=== PATIENT | male | born 1990 | race Caucasian/White ===

== ENCOUNTER 2022-01-06 09:09 | Outpatient (CLI) | payer OTHER, SELFPAY ==
--- NOTE | 2022-01-06 09:00 | DI.RAD_ITS ---
Exam(s) XR SHOULDER RT COMPLETE 2+V EXAM: XR SHOULDER RT COMPLETE 2+V CLINICAL HISTORY: right shoulder pain. TECHNIQUE: 2D digital imaging was performed. COMPARISON: No exams were available for comparison FINDINGS: Two views: There is no evidence of fracture or dislocation no abnormal soft tissue calcifications. No obvious d egenerative changes. Coracoid process unremarkable. No os acromiale. Bone density is normal. No o sseous. Ipsilateral clavicle unremarkable. IMPRESSION: DATA REPOSITORY: RADIATION DOSE DELIVERED:
== END 2022-01-06 09:10 | disposition home or self-care (01) ==
LOC: DIORS 09:09
PROVIDERS: Visit Provider Student in an Organized Health Care Education/Training Program
DX: M25.511 Pain in right shoulder (principal)
CPT/HCPCS: 73030

== ENCOUNTER 2022-06-19 06:17 | Day surgery (SDC) | payer OTHER, SELFPAY ==
[2022-06-19] VITALS (14 sets, daily range): BP systolic 105–145; BP diastolic 55–90; PULSE 52–85; RESP 8–16; TEMP 36.1–36.7; O2SAT 95–100; BMI 24.1
--- NOTE | 2022-06-19 07:00 | ROE_ITS ---
Date of service: 06/19/22 Time of Service: 10:04 Operative Note Operative Note DATE OF PROCEDURE: 06/19/22 PRE-OP DIAGNOSIS: Right: 1. Labral tear with recurrent instability 2. SLAP tear 3. Bursitis 4. Partial articular rotator cuff tear POST-OP DIAGNOSIS: same PROCEDURE: Right: 1. Arthroscopic labral repair stabilization, CPT #17831: This involved suture anchor repair of anterior and anterior inferior ligament, labrum labrum, and capsule complex. 2. Arthroscopic biceps tenodesis, CPT# 54767. This involved arthroscopically suturing and reattaching the long head of the biceps tendon to the proximal humerus at the superior margin of the bicipital groove with a screw at the correct tension. 3. Extensive debridement, CPT# 74896. This involved using arthroscopic hand instruments, power instruments, and radiofrequency instruments to release the long head of the biceps tendon and debride areas of labral tearing, synovitis, partial articular rotator cuff tear, and chondromalacia about the glenoid working within the glenohumeral joint anteriorly, superiorly and posteriorly. 4. Subacromial decompression with partial acromioplasty, CPT# 13466. This involved using arthroscopic power instruments and a radiofrequency wand to complete a bursectomy and remove bone spurs on the undersurface of the acromion. The infertility medical assistant was medically required in order to help assist in techniques above, which require positioning the arm, holding the arthroscope, and manipulating multiple instruments and sutures at the same time. This cannot be done without the help of an experienced infertility medical assistant. SURGEON: Karan Zavala INSPECTION AND TESTING SUPERVISOR: Ale Reyes ANESTHESIA TYPE: General LMA/ETT and Primary Nerve Block Refer to Anesthesia Record ESTIMATED BLOOD LOSS: 10 PATHOLOGY: none sent COMPLICATIONS: None Patient was transported to: PACU Patient's condition: stable Implants: Arthrex: 4.75mm SwiveLocks x 1 and 2.9 mm push lock x3 Indications: The patient was diagnosed with the above conditions and appropriately indicated for surgical intervention. Please see complete medical record for details. Findings: Exam under anesthesia: Moderate anterior instability without dislocation. Significant inferior translation and positive sulcus sign in neutral and 30 degrees external rotation. Glenohumeral joint: Significant anterior superior and posterior synovitis. Chronic?appearing anterior anterior inferior labral, capsular, and AIG HL injury with reduced and absent normal labral tissue. Labral tear extended superiorly with an unstable biceps anchor. Moderate biceps tendon and synovitis. Tear continued posteriorly and ended posterior superiorly with only mildly unstable posterior superior labrum. The free labral edge had significant fraying. There was diffuse mild fraying of the articular rotator cuff. Intact subscapularis. Intact articular footprint supraspinatus and infraspinatus. Relatively small and shallow non-? engaging Hill-Sachs lesion. Subacromial space: Significant bursitis. No bursal rotator cuff tear. Minimal undersurface acromial bone spur. Procedure Description: In the operating room, general anesthesia was induced. Bilateral shoulders were examined. The patient was positioned in the beachchair position. All bony prominences were well-padded. Preoperative antibiotics were administered. The shoulder was prepped and draped in the usual sterile fashion. The correct patient, procedure, and side of the procedure were all verified prior to incision. Starting through the posterior portal a standard complete diagnostic arthroscopy was performed of the glenohumeral joint including inspection of the long head of the biceps, anterior and superior labrum, subscapularis tendon, supraspinatus and infraspinatus tendons, and axillary recess. The glenoid and humeral head cartilage as well as the posterior labrum were inspected from an anterior viewing portal. Significant findings and interventions noted above. An all-arthroscopic suprapectoral biceps tenodesis was performed through an anterior portal using a Loop N Tack method with a SutureTape FiberLink cinched around and through the tendon. The biceps was tenotomized from the labrum and fixated with a suture anchor at the superior margin of the bicipital groove. The knotless repair suture from the SwiveLock was used to pass and secure additional fixation over the biceps tenodesis. A second anterior inferior portal was established through the subscapularis atraumatically with dilators and rigid cannula inserted here as well. Care was taken to properly prepare the anterior and anterior-inferior glenoid margin for optimal bone tissue healing. Various liberators and elevators were used to maximally elevate and preserve capsular ligamentous and remnant labral tissue. Starting lowest on the glenoid face, the 45 degree left lasso was used to pass a suture tape FiberLink around AIG HL, capsular, and labral remnant tissue. A suture tape FiberLink was shuttled and then retrieved out the anterior inferior cannula and a luggage tag configuration. The eccentric drill guide was used to ensure placement of suture back onto the face of the glenoid. The drill was used through the drill guide slightly more superior than the secured tissue to reduce inferior tissue redundancy with a slight shift. The repair suture was loaded on the push lock, which was successfully deployed with good tissue and bone fixation strength. This process was repeated for an additional low anterior anchor as well as the mid anterior anchor as well completing the stabilization repair. The shoulder demonstrated appropriate increased instability and decreased lateral and inferior translation after repair. The unstable biceps anchor was inspected and was appropriately debrided and now stable after the anterior labral repair. There is no need for additional SLAP repair. Hill-Sachs lesion remained non-engaging and there was no need for remplissage. Starting through the posterior portal, the arthroscope was directed into the subacromial space. A lateral 50 yard line lateral portal was created. A combination of power instruments and a radiofrequency ablator were used to enma ride bursitis anteriorly, posteriorly, and laterally as well as expose and smooth bone spurring on the undersurface of the acromion. The coracoacromial ligament was partially released. The bursectomy was completed viewing laterally and working from posteriorly and the rotator cuff was thoroughly inspected with findings noted above. The shoulder was drained of arthroscopic fluid. All portal sites were copiously irrigated. These incisions were closed using 3-0 Monocryl in a buried fashion and then covered with Mastisol, Steri-Strips, Xeroform, dry gauze, and ABDs. The dressings were covered and secured with Medipore tape. The operative extremity was placed into a sling for immobilization. The patient awoke from anesthesia without complication and was transferred to the recovery room in a stable condition.
--- NOTE | 2022-06-19 07:00 | ANES.PREOP_ITS ---
General Info Date of Service Date Performed: 06/19/22 Height: 5 ft 7 in Weight: 69.85 kg Body Mass Index (BMI): 24.1 Surgical Procedure: Operation Date: 06/19/22 07:40 Proposed Procedure Side Surgeon p Shoulder Arthroscopy w/Extensive Debridement,Labral Repair,Biceps Tenodesis,Subacromial Decompression & Possible Remplissage Right Karan Zavala MD Meds Allergies and Home Medications Allergies Allergy/AdvReac Type Severity Reaction Status Date / Time shellfish derived Allergy Severe Verified 06/19/22 06:43 venom-honey bee Allergy Unknown Verified 06/19/22 06:43 mirtazapine AdvReac Intermediate Nausea Verified 06/19/22 06:43 Home Medication Medication Instructions Recorded albuterol 90 mcg/actuation aerosol 90 mcg inhalation BID 12/09/21 inhaler calcium carbonate 500 mg calcium 1,000 mg PO BID 12/09/21 (1,250 mg) chewable tablet clonidine HCl 0.1 mg tablet 0.1 mg PO TID 12/09/21 fluticasone propionate 50 1 spray intranasal BID 12/09/21 mcg/actuation nasal spray,suspension (Allergy Relief (fluticasone)) omeprazole 40 mg capsule,delayed 40 mg PO DAILY 12/09/21 release buprenorphine HCl 8 mg sublingual 16 mg sublingual DAILY 05/05/22 tablet bupropion HCl 150 mg tablet,12 hr 150 mg PO BID 06/18/22 sustained-release (Wellbutrin SR) aspirin 81 mg tablet,delayed 81 mg PO DAILY Prevent blood clot 06/19/22 release 14 days #14 tabs naproxen 250 mg tablet 250 - 500 mg PO BID PRN #40 tabs 06/19/22 oxycodone 5 mg tablet 5 - 10 mg PO Q4H PRN moderate to 06/19/22 severe pain #18 tabs Current Visit Medications: Current Medications Generic Name Dose Route Start Last Admin Trade Name Freq PRN Reason Stop Dose Admin Ringer's Solution 1,000 mls @ 30 mls/hr 06/19/22 06:00 IV 06/19/22 16:00 INFUSION LAYO Cefazolin Sodium/Dextrose 2 gm in 50 mls @ 100 mls/hr 06/19/22 06:00 Ancef Duplex IVPB 06/19/22 23:59 PREOP LAYO IV Miscellaneous Supplies 1 each 06/19/22 06:00 Iv Access IV 06/19/22 23:59 DIRECTED LAYO Sodium Chloride 0 ml 06/19/22 06:00 Normal Saline Flush 10 Ml Syr IV 06/19/22 23:59 PRN PRN Sodium Chloride 0 ml 06/19/22 06:00 Normal Saline 10 Ml Vial IJ 06/19/22 23:59 DIRECTED PRN Sterile Water 0 ml 06/19/22 06:00 Water,Injection,Sterile 10 Ml Vial IJ 06/19/22 23:59 DIRECTED PRN PFSH Active Problems Active Problems: Problem Status Onset Code 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 SLAP lesion of right shoulder S43.431A Bursitis of right shoulder M75.51 Medical History Medical History (Updated 06/19/22 @ 07:09 by Yumiko Choudhury) GERD (gastroesophageal reflux disease) Keratosis pilaris Medical History Comments:: [place] [employer] inmate Surgical History Surgical History (Updated 06/19/22 @ 06:46 by Yumiko Choudhury) Hx of tonsillectomy Hx of wisdom tooth extraction Tobacco Smoking/Tobacco Use Status: Former Tobacco Use Alcohol Alcohol Intake: former Substance Use Substance use: Current Sobriety Substance use type: former substance user Details: 3+years Vital Signs and Lab Results Vital Signs Most Recent Vital Signs in EMR: Most Recent Vital Signs Temp Pulse Resp BP Pulse Ox 36.7 C 72 15 126/90 97 06/19/22 06:49 06/19/22 06:49 06/19/22 06:49 06/19/22 06:49 06/19/22 06:49 Lab Results Blood Type / Crossmatch: No Data to Display Complete Blood Count: No Data to Display Complete Metabolic Panel: No Data to Display Liver Function Panel: No Data to Display Coagulation Panel: No Data to Display Cardiac Panel: No Data to Display Arterial Blood Gas: No Data to Display Venous Blood Gas: No Data to Display Pancreas Panel: No Data to Display Thyroid Panel: No Data to Display Infectious Disease: No Data to Display Blood Cultures: 2 No Data to Display Toxicology Panel: No Data to Display Anesthesia Assessment and Plan Anesthesia History Personal History: No History of Anesthesia Complications Family History: No Family History of Anesthesia Complications Exercise Tolerance Exercise Tolerance: Metabolic Equivalents>4 Pertinent Negatives Pertinent Negatives: No Symptoms of GERD, No Major Cardiovascular Symptoms or Complaints and No Major Pulmonary Symptoms or Complaints Cardiac & Pulmonary Exam Cardiac Exam: Normal S1/S2 Heart Sounds Pulmonary Exam: Clear Bilateral Breath Sounds Implantable Cardiac Device Does patient have a Pacemaker or an ICD?: No Airway Exam Known Difficult Airway: No Mallampati Class: 2 Mouth Opening: Normal (> 3cm) Thyromental Distance: Greater than 3 cm Facial Hair: Full Santos Neck Range of Motion: Full ROM Neck Circumference: Normal Teeth Condition: Normal Dentition ASA Classification ASA Score: ASA 2 Emergency Case?: No NPO Status NPO Status: NPO Clears >2 hours, Solids >8 hours Anesthesia Plan Resuscitation Status: Full Code Anesthesia Technique: General Anesthesia Airway Planned: Endotracheal Tube Pain Management: Surgeon and patient request nerve block Monitors Used: Standard Monitors
--- NOTE | 2022-06-19 07:01 | PDOC.DSDIS_ITS ---
Date of service: 06/19/22 Time of Service: 09:53 Discharge Plan Disposition Patient Disposition: HOME Condition: Stable Discharge Details Reason For Visit: Right shoulder surgery Attending Provider: Karan Zavala Primary Care Provider: Unknown,Unknown Home Meds and New Rx's Prescriptions: New naproxen 250 mg tablet 250 - 500 mg PO BID PRNQty: 40 0RF Rx Instructions: take with a meal aspirin 81 mg tablet,delayed release (DR/EC) 81 mg PO DAILY 14 Days Qty: 14 0RF oxycodone 5 mg tablet 5 - 10 mg PO Q4H MDD 30 mg PRN (Reason: moderate to severe pain) Qty: 18 0RF Continued buprenorphine HCl 8 mg tablet, sublingual 16 mg sublingual DAILY clonidine HCl 0.1 mg tablet 0.1 mg PO TID omeprazole 40 mg capsule,delayed release(DR/EC) 40 mg PO DAILY albuterol 90 mcg/actuation aerosol 90 mcg inhalation BID fluticasone propionate [Allergy Relief (fluticasone)] 50 mcg/actuation spr ay,suspension 1 spray intranasal BID Rx Instructions: administer into each nostril calcium carbonate 500 mg calcium (1,250 mg) tablet,chewable 1,000 mg PO BID bupropion HCl [Wellbutrin SR] 150 mg Tablet Sustained-Release 12 Hr 150 mg PO BID Discharge Instructions Additional Instructions: Surgery: Right shoulder arthroscopy with labral repair stabilization, biceps tenodesis, extensive debridement, and subacromial decompression. Activity: For 6 weeks, you should keep your arm at your side in a neutral position at all times except for physical therapy. Do not try to lift or raise your arm using your own muscles. You should use the sling whenever you are out of the house. You may have to adjust the abduction pillow or remove it for comfort. At home it is best to remove the sling and rest the arm on a pillow at your side or support the operative side with your other hand. You may allow the arm to dangle at your side. A physical therapy prescription will be provided separately in the office at follow-up. Protect biceps tenodesis: Avoid any weighted elbow flexion or resisted supination for 6 weeks. Concentric biceps strengthening after 8 weeks. Eccentric after 12 weeks. Range of motion protocol: 0-6 weeks: 0 degrees external rotation and 90 degrees forward elevation 6-8 weeks: 30 degrees external rotation and 120 degrees forward elevation 8+ weeks: Advance to full Prescriptions: Aspirin 81 mg take 1 daily to prevent a blood clot for 2 weeks Naproxen 250 mg take 1-2 every 12 hours with a meal as needed for moderate pain Oxycodone 5 mg take 1-2 every 4-6 hours as needed for severe pain You may use [id number] Tylenol (acetaminophen) as needed for mild pain. These pain medications may be taken all at once or in different combinations as needed. Also, recommend Colace (docusate) as a stool softener as surgery and pain medicine cause constipation. You may try [id number] diphenhydramine (Benadryl) 25-50 mg nightly as a sleep aid Dressings: Remove shoulder bandage after 3 days. Leave the sticky Steri-Strips in place until they fall off or remove them after you shower. Cover the incisions with Band-Aids or leave them open to air. You may shower after 5 days. Follow-up: 10-[address] Zavala You may take off the leg compression stockings this evening at home. You may also leave them on a few days longer if you have a history of leg swelling or edema. Let us know right away if you develop any redness, drainage, fevers, chest pain, or trouble breathing. Do not drink alcohol or drive for at least 24 hours after anesthesia. Please call the office during business hours with any questions or concerns. DS: Diagnosis Discharge Diagnosis (1) Instability of right shoulder joint: Status: Acute (2) SLAP lesion of right shoulder: Status: Acute (3) Bursitis of right shoulder: Status: Acute
[2022-06-19] MEDS: Lactated Ringers 1,000 ML 30 ML IV (07:15)
[2022-06-19] MEDS: ceFAZolin 2 GM/50 ML BAG IVPB (07:40)
[2022-06-19] MEDS: Bupivacaine 0.5% Pres-Free W/EPI 30 ML VIAL (09:39)
[2022-06-19] MEDS: EPINEPHrine 30 MG/30 ML VIAL (09:39)
[2022-06-19] MEDS: fentaNYL 100 MCG/2 ML VIAL IVP ×2 (10:59→11:05)
[2022-06-19] MEDS: Normal Saline 10 ML VIAL IJ (11:15)
[2022-06-19] MEDS: HYDROmorphone 2 MG/ML SYR IVP ×2 (11:16→11:28)
--- NOTE | 2022-06-19 11:19 | W.ANESNERVE ---
Nerve Block Single Injection Procedure Date and Time Date Performed: 06/19/22 Procedure Start: 07:23 Location Where Procedure Performed Procedure Location: Day Surgery Unit Reason Performed: Postoperative Analgesia Requesting Provider: Karan Zavala Timeout Performed Timeout Performed: Yes Monitoring Used ECG, Blood Pressure, SpO2 and See EMR for corresponding vital signs Sterility Sterility: Hand Hygiene, Surgical Cap, Surgical Mask, Sterile Gloves, Eye Protection and Chlorhexidine Sedation Given During Procedure Sedation Given (Indicate Dose Given): Versed IV Dose:: 2mg Patient Mental Status Patient Mental Status: Awake Nerve Block 1st Nerve Block: Laterality: Right Block Type: Interscalene Needle / Catheter Used: 80mm SonoPlex II Local Anesthetic Bolus (Indicate Dose Given): Lidocaine used for local infiltration of skin, Injected in 3-5ml increments after negative blood aspiration, Bupivacaine 0.5% Dose:: 10mL and Exparel Dose:: 10mL Additives (Indicate Dose Given): None Ultrasound: Sterile probe cover and gel used Ultrasound Image Saved?: Yes Nerve Stimulator: Supplement to Ultrasound use and No twitch or parasthesia noted < 0.5 mA Paresthesia: None Procedure Tolerated: No Complications Procedure Outcome: Successful Performed By: Pamela Lam
[2022-06-19] MEDS: Ondansetron 4 MG/2 ML VIAL IVP ×2 (11:23)
--- NOTE | 2022-06-19 12:19 | W.ANESPOSTOP ---
Postoperative Evaluation Date, Time and Location Date Performed: 06/19/22 Time Performed: 10:50 Patient Location: PACU Vital Signs Most Recent Imported Vital Signs: Most Recent Vital Signs Temp Pulse Resp BP Pulse Ox 36.2 C L 69 11 L 145/75 H 100 06/19/22 11:35 06/19/22 11:35 06/19/22 11:35 06/19/22 11:35 06/19/22 11:35 Pain Score Most Recent Pain Score: Most Recent Pain Score Pain Level 7 06/19/22 11:35 Assessment Mental Status: Arousable with meaningful communication Airway and Respiratory Function: Patent airway with normal (patient baseline) respiratory exam Cardiovascular Function: Hemodynamically Stable Hydration Status: Adequately Hydrated Nausea & Vomiting: No Nausea or Vomiting Pain: Pain is Moderate or Severe Postoperative Pain Management: Pain being addressed with medication Peripheral Nerve Block: Regional nerve block not resolved at time of post operative discharge Postoperative Comments:: Patient evaluated, reports lateral shoulder discomfort. Discussed with Dr. Zavala. Plan for PO medication on discharge.
[2022-06-19] MEDS: oxyCODONE 5 MG TAB PO (12:40)
== END 2022-06-19 13:26 | disposition home or self-care (01) ==
PROVIDERS: Visit Provider Student in an Organized Health Care Education/Training Program
PROC: (CPT 29805; principal; 2022-06-19 07:30)
DX: M25.311 Other instability, right shoulder (principal); M75.51 Bursitis of right shoulder; S43.431A Superior glenoid labrum lesion of right shoulder, initial encounter; M75.21 Bicipital tendinitis, right shoulder; S43.421A Sprain of right rotator cuff capsule, initial encounter; K21.9 Gastro-esophageal reflux disease without esophagitis; X58.XXXA Exposure to other specified factors, initial encounter
CPT/HCPCS: 29806; 29828; 29826; 29823; 76942; J0131; J0690; J1100; J1170; J1885; J2250; J2405; J3010